=== PATIENT | female | born 1975 | race Caucasian/White ===

== ENCOUNTER → 2021-01-18 11:33 | Outpatient (BNVA) | payer BC, SELFPAY | PROVIDERS: PCP Nurse Practitioner Family; Visit Provider Nurse Practitioner Family | DX: I10 Essential (primary) hypertension (principal); F41.9 Anxiety disorder, unspecified | CPT/HCPCS: 80048; 80061 ==

== ENCOUNTER → 2021-01-24 15:43 | Outpatient (BNVA) | payer BC, SELFPAY | PROVIDERS: PCP Nurse Practitioner Family; Visit Provider Nurse Practitioner Family | DX: Z79.899 Other long term (current) drug therapy (principal); B00.1 Herpesviral vesicular dermatitis; E78.5 Hyperlipidemia, unspecified | CPT/HCPCS: 80076; 82550 ==

== ENCOUNTER → 2022-01-03 09:30 | Outpatient (BNVA) | payer BC, SELFPAY | PROVIDERS: PCP Nurse Practitioner Family; Visit Provider Nurse Practitioner Family | DX: F41.9 Anxiety disorder, unspecified (principal); E78.5 Hyperlipidemia, unspecified; I10 Essential (primary) hypertension | CPT/HCPCS: 80053; 80061; 83721; 84439; 84443; 84481 ==